=== PATIENT | male | born 1970 | race Caucasian/White ===

== ENCOUNTER 2020-04-20 16:36 | Emergency (ER) | payer SELFPAY ==
[2020-04-20 16:41] VITALS: BP 135/94; PULSE 97; RESP 17; TEMP 37.2; O2SAT 98; BMI 35.6
--- NOTE | 2020-04-20 16:57 | ED.VIS.UPPEX ---
History of Present Illness Chief Complaint: Wound Informant: Patient Occurred: Weeks - 2 Mechanism/Context: Injury Onset: Yesterday Context: Gradual Onset Timing: Continuous Quality of Pain: - - denies pain Location: right elbow Current Severity: Mild Maximum Severity: Mild Worsened by: squeezing affected area Relieved by: remaining still Associated Symptoms: Negative for: Parasthesia, Weakness, Loss of Funtion Narrative: Patient states he was helping someone clean up some downed trees 2 weeks ago and his friend had a chainsaw that he was using, the patient turned and accidentally caught the edge of it with his right forearm causing a wound/laceration. Today is the first time he has sought care for this. He did not have any significant pain, he bandaged it, and his significant other has been putting hydrogen peroxide on it daily. Patient states he has been allowing his dog to lick the wound to keep it clean. Yesterday he had some chills and family noticed it starting to turn red around the wound yesterday and into today for the first time. Significant other saw some small amount of discharge from the wound that resembled pus. Tetanus Immunization: 5-10 years Past Medical History - Allergies and Home Meds Allergies/Adverse Reactions: Allergies acetaminophen [From Vicodin] Adverse Reaction (Verified 04/20/20 16:40) Upset Stomach hydrocodone [From Vicodin] Adverse Reaction (Verified 04/20/20 16:40) Upset Stomach Primary Care Physician: Jese Santana MD [Primary Care Provider] - Past Medical History: None Lives: Spouse/ Significant Other Smoking Status: Current every day smoker Review of Systems General: Reports: Chills Musculoskeletal: Reports: Extremity Pain Skin: Reports: Wounds. Denies: Rash Neurological: Denies: Headache, Weakness, Numbness Physical Exam Vital Signs/Narrative: Vital Signs Temp Pulse Resp BP Pulse Ox 04/20/20 16:41 99.0 F 97 17 135/94 H 98 General: Well nourished, Well developed, - - Well-appearing, no distress Head: Normocephalic, Atraumatic Eyes: Perrl, EOMI ENT: No Trauma, Moist Mucous Membranes Neck: Nontender, Full ROM Extremeties: Full range of motion throughout all joints including the right elbow. Full extension without any discharge from the wound. Skin: Normal color, Rash - Mildly tender blanching erythema without fluctuance or pointing at the olecranon process, just proximal to the wound. No lymphangitis. Limited area that is affected with redness., Trauma - Wound with granulation tissue, transverse across the proximal ulnar right forearm just distal to the olecranon process, there is surrounding erythema there is no expressible discharge. Neurological: Alert, Oriented x3, Cranial nerves II-XII grossly intact, Normal Strength, Normal Sensation, Normal Gait Psychological: Normal affect, Normal Mood Diagnostic/Tx/Re-eval - Medical Decision Making Advised patient to stop allowing his dog to lick his wound. Advised to stop putting hydrogen peroxide in a wound that is having trouble healing. I advised continuing to do dressings along with antibiotic ointment, this wound will clearly need to heal by secondary intent. It looks like it probably was deep but is not so much now. There is subcutaneous tissue but nothing else visible in the wound. We will place him on Augmentin and Bactrim in order to try to cover the most dangerous possible etiologies including MRSA and Peptostreptococcus, Staphylococcus. ED Disposition - Plan for ED Patient: Disposition: Home or Assisted Living Diagnosis: Wound infection, posttraumatic, Tetanus-diphtheria (Td) vaccination Instructions: ED Wound Check Laceration FU Infec Prescriptions: Amox/Clavulanate Tablet [Augmentin Tablet] 875 mg PO Q12H #20 tab Transmission Status: Pending to [address] Sulfamethoxazole/Trimethoprim [Bactrim Ds Tablet] 1 ea PO BID #20 tab Transmission Status: Pending to [facility] [address] Referrals: Jese Santana MD [Primary Care Provider] - 3-5 Days if not improving
[2020-04-20] MEDS: Amox/Clavulanate 875 MG Tablet PO (17:00)
[2020-04-20] MEDS: Smz/Tmp Ds Tablet 1 TABLET PO (17:00)
[2020-04-20] MEDS: Diphth,Pertuss(Acell),Tet Vac 0.5 ML Vial IM (17:03)
== END 2020-04-20 17:23 | disposition home or self-care (01) ==
LOC: ED 17:21
PROVIDERS: Emergency Provider Emergency Medicine
DX: S51.801A Unspecified open wound of right forearm, initial encounter (principal); L08.9 Local infection of the skin and subcutaneous tissue, unspecified; Z23 Encounter for immunization; W29.3XXA Contact with powered garden and outdoor hand tools and machinery, initial encounter; Y93.9 Activity, unspecified; Y92.9 Unspecified place or not applicable; F17.200 Nicotine dependence, unspecified, uncomplicated
CPT/HCPCS: 90715; 99284